=== PATIENT | male | born 1970 | race Caucasian/White ===

== ENCOUNTER 2016-11-12 11:19 | Inpatient (IN) | payer MEDICAID, OTHER ==
[~2016-11-12] VITALS: Ht 188 cm; Wt 90.1 kg
[~2016-11-12 11:19] MED LIST: AMPH20CA5 PO; KLO5T PO; LAMO200T PO; LAMO25TA2 PO; LURA20TA PO
[2016-11-12 11:22] VITALS: PULSE 82; RESP 14; O2SAT 98
--- NOTE | 2016-11-12 12:20 | ED.REPORT ---
HPI-Psychiatric Illness Date of Service November 12, 2016 ED Provider: Harrison Ortiz DO The patient is a 45 year old male with history of bipolar disorder, borderline personality disorder, PTSD, OCD, and ADHD, who presents to the emergency department with his requesting psychiatric hospital admission. The patient states he has been feeling suicidal over the last 9 years. About 1 year ago he started to feel homicidal. He states, "Right now I am between hurting myself and hurting everyone else. I want to be someone that makes such a big stink that they have to change the medical laws in the state. I have borderline personality disorder and I can go into a gun shop and buy an assault viviana. I have a plan that I can go and shoot a bunch of people on the [place] so my and family can go and kira the state." Yesterday the patient overdosed on medication. He admits to taking about 28 Klonopin and 6 Xanax last night, and this morning he took 5 more Klonopin. He is normally compliant with his medications. He has no physical complaints at this time. Nursing Notes Stated Complaint: MENTAL HEALTH Chief Complaint: Psychiatric Complaint Nursing Notes Reviewed: Yes Allergies: Coded Allergies: Sulfa (Sulfonamide Antibiotics) (Verified Adverse Reaction, Severe, Rash, 11/12/16) happened when pt was a child Scheduled Clonazepam (Clonazepam) 0.5 Mg Tab 1 MG PO DAILY 1mg in the am 0.5mg noon (prn) 0.5mg night (prn) Dextroamphetamine/Amphetamine ER (Adderall XR) 20 Mg Cap.er.24h 40 MG PO DAILY Lamotrigine (Lamictal) 200 Mg Tablet 400 MG PO DAILY Lamotrigine (Lamictal) 25 Mg Tablet 50 MG PO DAILY Miscellaneous Medications Lurasidone (Latuda) 20 Mg Tablet 20 MG PO General Time Seen by MD: 12:13 Chief Complaint Homicidal ideation, Suicidal ideation Hx Obtained From: Patient, Spouse Arrived By: Walk-in Onset Occurred: More than a week ago... Symptom Duration: Since onset Progression Since Onset: Constant, Gradually worsening Severity: Current: No pain currently Severity: Maximum: No pain Recent Healthcare: No recent hospitalization, Recent doctor visit Similar Sx Previous: Yes Risk-Psychiatric Illness Suicide Risk Stratification Suicide Risk Factors - Adult: No: Alcohol use, Substance abuse RF Statements: Risk factors reviewed Past Medical History Past Medical History Kidney stones Borderline personality disorder Bipolar PTSD OCD ADHD Past Surgical History Urinary stent placement Family History Noncontributory Smoking History Never Smoker Social History Alcohol Use: Denies alcohol use Drug Use: THC Other Social History: Good social support, , Local resident Ambulatory Status Independent Review of Systems Psychiatric: Reports: Change mental status, Homicidal ideation, Suicidal ideation, Unable to control self Complete sys rev & neg: except as marked. Physical Exam Initial Vital Signs Vital Signs (First) Date Time Temp Pulse Resp B/P Pulse Ox O2 Delivery O2 Flow Rate FiO2 11/12/16 11:22 36.0 82 14 98 Initial VS: Reviewed Head / Eyes: Atraumatic, Normocephalic, PERRL ENT: Mucous membranes moist, Conjunctiva normal, No scleral icterus Neck: Supple, Non-tender, Full range of motion Respiratory: Breath sounds normal, Clear to auscultation, No respiratory distress Cardiovascular: Regular rate & rhythm, Heart sounds normal, Intact distal pulses Abdomen / GI: Soft, Non-tender, No guarding, No rebound, No distention Extremities: Vascular intact, Neuro intact, No swelling, No tenderness Skin: Warm, Dry, No cyanosis General/Constitutional: Awake Neurologic: Oriented X3, Speech NL Abnormal Mood/Affect: Positive: Flat affect Abnormal Thinking / Perception: Positive: Homicidal, with plan (to murder people with an assault viviana), Suicidal, with plan Interpretation & Diagnostics Interpretation & Diagnostics: Breathalyzer: 0 Urine drug screen: positive for marijuana and benzodiazepines Lab Results Interpretation Result Diagram: 11/12/16 1231 11/12/16 1231 Test 11/12/16 12:31 11/12/16 14:30 White Blood Count 10.1th/mm3 (3.8-10.1) Red Blood Count 5.88mil/mm3 (4.40-5.80) Hemoglobin 17.0g/dL (13.8-17.2) Hematocrit 50.1% (41.0-50.0) Mean Corpuscular Volume 85.2fL (81-100) Mean Corpuscular Hemoglobin 28.9pg (27.0-35.0) Mean Corpuscular Hemoglobin Concent 33.9% (32.0-37.0) Red Cell Distribution Width 13.6% (12.3-15.4) Platelet Count 292bil/L (150-400) Neutrophils (%) (Auto) 58.5% (40-74) Lymphocytes (%) (Auto) 30.1% (14-46) Monocytes (%) (Auto) 9.7% (4-12) Eosinophils (%) (Auto) 1.2% (0-5) Basophils (%) (Auto) 0.3% (0-3) Sodium Level 140mEq/L (134-144) Potassium Level 4.3mEq/L (3.5-5.2) Chloride Level 103mEq/L (97-108) Carbon Dioxide Level 23mmol/L (18-29) Blood Urea Nitrogen 13mg/dL (6-24) Creatinine 1.02mg/dL (0.76-1.27) Estimat Glomerular Filtration Rate 84mL/min (>59) Glucose Level 85mg/dL (60-99) Calcium Level 10.0mg/dL (8.5-10.1) Total Bilirubin 0.4mg/dL (0.0-1.2) Aspartate Amino Transf (AST/SGOT) 38U/L (0-50) Alanine Aminotransferase (ALT/SGPT) 58U/L (0-44) Alkaline Phosphatase 77U/L (25-150) Total Protein 7.8g/dL (6.4-8.4) Albumin 4.4g/dL (3.4-5.0) Thyroid Stimulating Hormone (TSH) 4.030uIU/mL (0.450-4.500) Hold Ramirez Top Tube Received (Received) Salicylates Level < 3.0ug/mL (30-250) Acetaminophen Level < 15.0ug/mL Rx (10-25) Hold Urine Received (Received) Re-Eval/Medical Decision Med Decision/Clinical Course medically clear Source of Hx: Old records, Family Re-Evaluation/Progress : Time of Eval: 12:36 Re-Evaluation/Progress Note: The patient mentioned to the nurse after we left that room that he brought a razor blade with him to slit his wrists if we tried to send him home. Consultation #1: Consulted With: best worker Call Returned at: 13:15 Note: Will work on getting the patient a psychiatric bed. Consultation #2: Consulted With: best worker Call Returned at: 15:14 Note: The patient has been accepted in the care center. Counseled Regarding: Diagnosis, Lab results, Need for admission Discharge & Departure Impression: Primary Impression: Homicidal ideations Additional Impression: Suicidal ideations )( Condition at Discharge: Clear for psych facility Disposition: ADMITTED TO HOSPITAL Discharge Condition All VS Reviewed: Yes Condition: Stable Referrals: Avelino Bryan MD (PCP) [place] Attestation Portions of this note were transcribed by Jerica Son. I, Dr. Ortiz personally performed the history, physical exam and medical decision-making; I reviewed and confirmed the accuracy of the information in the transcribed note. Signed by: Amilcar Tay, 11/12/2016 at 1700. copies to: Avelino Bryan MD, Timothy S DO November 12, 2016 12:20 Jerica Son November 12, 2016 12:28
[2016-11-12 12:46] LABS: BASOPHILS % (AUTO) 0.3 % (0-3); EOSINOPHILS % (AUTO) 1.2 % (0-5); MONOCYTES % (AUTO) 9.7 % (4-12); Mean Corpuscular Hemoglobin 28.9 pg (27.0-35.0); Mean Corpuscular Volume 85.2 fL (81-100); NEUTROPHILS % (AUTO) 58.5 % (40-74); Platelet Count 292 bil/L (150-400)
--- NOTE | 2016-11-12 17:45 | NUR ---
Nurses Admission Note 45 year old voluntary male admitted after allegedly taking 28 1mg Klonopin yesterday and 8 Xanax 0.5mg today in a suicide attempt. Patient was brought to the ER by his for help. Patient c/o auditory hallucinations with a thoughts of buying an assault rifle and planning to shoot people to make a point about mental health patients. Patient reported he has not been medication compliant for greater than 3 months with many prescribed medications except for Klonopin and Adderall. Patient denied feelings of self harm and contracted for his safety as well as others. Patient reported having no anxiety,depression at this time. He reported sleeping but 2-3 hours a night which he stated was normal for him. He admitted to preferring to "having a bad day to feeling good" because it they never last and he becomes angry."Someone pisses me off." Patient presented cooperative,alert and oriented X 3.Will maintain q 15min. checks for safety and support,encourage improved insight and coping skills.
[2016-11-12] MEDS ORDERED: LITH300T2 PO (19:33)
[2016-11-12] MEDS ORDERED: AMPH30CA5 PO (19:36)
[2016-11-12] MEDS ORDERED: PRAZ1CAP PO (19:42)
[2016-11-12] MEDS ORDERED: PRAZ2CAP2 PO (19:43)
[2016-11-12] MEDS ORDERED: PRESTIG (19:49)
[2016-11-12] MEDS ORDERED: OLANZapine Zydis ODT 5 mg Tablet PO PRN (22:10)
[2016-11-12] MEDS ORDERED: Benzocaine-Menthol Lozenge 2/Pkg PO PRN (22:10)
[2016-11-12] MEDS ORDERED: Alum-Mag Hydrox-Simeth 30 mL Suspension PO PRN (22:10)
[2016-11-12] MEDS ORDERED: Magnesium Hydroxide 10 mL Oral Concentration PO PRN (22:10)
[2016-11-13 08:32] VITALS: BP 101/71; PULSE 83; RESP 13
[2016-11-13] MEDS ORDERED: Venlafaxine XR 37.5 mg ER24 Capsule PO ONE (17:20)
--- NOTE | 2016-11-13 18:25 | NUR ---
Nursing Dayshift: S: "What I really need is Adderall. But Latonia is a good friend to me." O: Patient's statement during med pass with Klonopin this AM. Notably anxious with both legs fidgeting. Not much effectiveness noted. Received a one time dose of Klonopin this afternoon with patient stating "it'll help me much." Noted calmer by latter afternoon. Family visiting at present and assisting patient with a puzzle. Good appetite at meals. Social with peers. Appropriate with interactions. A: Blunted affect. P: CPOC. Monitor mood and behavior.
--- NOTE | 2016-11-13 18:54 | NUR ---
Observations [id number] Pt very social and friendly with peers and staff. Pt spent the majority of the morning in the dining area, socializing with other patients. Pt very talkative and jokes frequently. Pt was listening to music in the morning and began crying by the TV, stated "I don't want to hear voices- I just want to be normal." Pt took a shower to calm down. He participated in group and was active on the unit, visited with and a friend in the evening and has been working on a puzzle. Pt ate 100% of meals, and was observed every 15 minutes of shift as directed.
--- NOTE | 2016-11-13 20:00 | NUR ---
inspection manager/Counselor: S: "I don't want to be a zombie so I don't want to take a lot of meds." O: Patient slept 6.5 hours last night per staff. Patient denies S/I. He reports H/I but says the person is in another state and he has "no way of hurting the person." He denies auditory and visual hallucinations. However, patient feels that he can control other people's thoughts. Depression is 3/10 and anxiety is 6/10. When asked his mood, patient stated, "Anxious." A: Patient is cooperative, disheveled, distactible, tangential, tearful at times, limited insight, limited judgment. P: Follow care plan, coordinate with out-patient providers. Addendum: 11/13/16 at 2003 by MARKY DUMONT [facility] [place] Patient attended and participated in the afternoon group.
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
--- NOTE | 2016-11-14 05:20 | NUR ---
nursing, nights, 11-7 s/o- has appeared to sleep after 2345. up at 0515 and is socializing in the dinning room. assessed q 15 minutes. a- no apparent distress. p- monitor behavior/emotional state, quality, times and amount of sleep, use and effect of medication. mame
[2016-11-14] MEDS: Venlafaxine XR 75 mg ER24 Capsule PO SCH (07:41)
[2016-11-14 09:10] VITALS: BP 111/87; PULSE 62; RESP 11
[2016-11-14 15:18] VITALS: BP 122/81; PULSE 87; RESP 16
--- NOTE | 2016-11-14 16:26 | PCM.PNPSY ---
Subjective Date of Service Nov 14, 2016 Subjective The patient reports that he is feeling playful this morning and upbeat. He reports a history of chronic suicidality spending approximately 10% of his day, but denies any thoughts of acting upon it. He reported having a good dream last night of his Lorraine with them was saddened when he saw that she was knocked actually there. The patient denied any side effects to medications he denied any homicidal threats or negative impulsivity. The patient was agreeable to increasing amantadine to twice a day as he was feeling somewhat restless in the morning. The patient reports that he spent $500 on an entrance fee for a [employer] tournament which is on Thursday and anticipates being discharged prior to then if possible. Sleep: 5.5 hours Appetite: Good eating everything Suicidal and homicidal ideation: Denies active, reports chronic occupying "10% of my time and Auditory hallucinations: "Tolerable today and " Visual hallucinations: Denies Other Psychotic Symptoms: Any Anxiety: "Just about wanting to know what today is going to bring." Excited anxiety 01/22. Depression: 0/10 Current Medications Current Medications Amantadine HCl 100 mg BID PO Last administered on 11/14/16 14:15; Admin Dose 100 MG; Start 11/14/16 at 12:50 Amantadine HCl 100 mg HS PO Last administered on 11/13/16 21:00; Admin Dose 100 MG; Start 11/13/16 at 21:00; Stop 11/14/16 at 12:51; Status DC Clonazepam 0.5 mg Q4H PRN PO Last administered on 11/14/16 13:07; Admin Dose 0.5 MG; Start 11/12/16 at 22:10 Clonazepam 1 mg 08,1430 PO Last administered on 11/14/16 14:03; Admin Dose 1 MG ; Start 11/14/16 at 08:00 Clonazepam 1 mg BID PO Last administered on 11/13/16 08:01; Admin Dose 1 MG; Start 11/12/16 at 22:10; Stop 11/13/16 at 16:38; Status DC Clonazepam 1 mg ONCE ONCE PO Last administered on 11/13/16 16:56; Admin Dose 1 MG; Start 11/13/16 at 16:35; Stop 11/13/16 at 16:41; Status DC Trazodone HCl 25 mg HS PRN PO Last administered on 11/13/16 22:22; Admin Dose 25 MG; Start 11/13/16 at 18:30 Trazodone HCl START WITH 1 TAB, MAY REPEAT... HS PRN PO Last administered on 22:33; Admin Dose 50 MG; Start 11/12/16 at 22:10; Stop 11/13/16 at 16:38 ; Status DC Venlafaxine HCl 37.5 mg ONCE ONCE PO Last administered on 11/13/16 18:27; Admin Dose 37.5 MG; Start 11/13/16 at 17:20; Stop 11/13/16 at 17:34; Status DC Venlafaxine HCl 75 mg DAILYWM PO Last administered on 11/14/16 07:41; Admin Dose 75 MG; Start 11/14/16 at 08:00 Mental Status Exam Appearance: Unkept Attitude: Pleasant, Cooperative Behavior: No unusual behavior Affect: Well Modulated/Appropriate, Restricted Mood: Anxious Thought Process/Associations: Logical/Sequential, Goal Directed Speech Production: Normal Speech Rate: Normal Speech Articulation: Normal Danger to Self/Suicidal Ideati: Passive (chronic as above) Danger to Others: None Hallucinations: Auditory (Denies), Visual (Denies) Consciousness: Alert Orientation: Person, Place, Date, Situation Memory: Grossly Intact Estimate Intellectual Function: Average Attention/Concentration & Cogn: Grossly Intact Insight: Limited Judgement: Limited Result Diagram: 11/12/16 1231 11/12/16 1231 Mental Health Plan The patient is a 45-year-old male with a history of mood disorder and borderline personality disorder and posttraumatic stress disorder who presents several days after a reported overdose of benzodiazepines due to suicidal and homicidal ideation. The patient's homicidal ideation apparently has resolved as has his suicidal ideation, but he continues to struggle with impulsivity. The patient also has a significant history of closed head injury. The patient appears to be experiencing negative side effects of high-dose Adderall with psychomotor agitation, hallucinations and irritability. The patient notes that since being off this medication, he has noted a decrease in all the above. Given his impulsivity and distractibility and history of closed head injury, the patient would likely respond to amantadine as this has been demonstrated to be effective in this situation. The patient would also likely benefit from an antidepressant given his history of posttraumatic stress disorder and ongoing depression. The patient was agreeable to starting Effexor and should this prove ineffective, would return to Pristiq. The patient appears to be tolerating current medications without significant side effects. He is aware that it will take some time to stabilize on his medications. He would like to remain on medications for several days in the hospital to ensure that he will not have any major side effects upon discharge. Merritt Merritt I 1. Mood disorder, not otherwise specified. 2. Posttraumatic stress disorder. 3. Attention deficit disorder by self-report Merritt II Borderline personality disorder. Merritt III1. 1. Status post clonazepam overdose 3 days ago. 2. Traumatic brain injury. 3. See past medical history. Merritt IV Moderate. Merritt V Global assessment of functioning 35 Medications Amantadine 100 mg twice daily Clonazepam 1 mg twice daily and 0.5 mg every 4 hours as needed for anxiety or agitation Venlafaxine XR 75 mg daily Trazodone 25 mg nightly when necessary insomnia Treatments 1. The patient is admitted to the inpatient unit and will be provided a safe and secure environment. 2. The patient is currently denying active suicidal ideation and is not in need of a one-to-one at this time. He is agreeable to notifying us should he have any acute suicidal or homicidal thoughts in the future. 3. The patient is encouraged to participate with group and milieu activities. 4. The patient will be seen by the treatment team on a daily basis to assess symptoms, side effects and response to treatment. 5. Continue venlafaxine XR 75 mg. 6. Increase amantadine to 100 mg twice daily. 7. Clonazepam will be continued at 1 mg twice daily and 0.5 mg every 4 hours as needed. 8. Trazodone 25 mg p.o. nightly p.r.n. insomnia. 9. Should the patient demonstrate impulsivity and attention difficulty, guanfacine may be beneficial in reducing symptoms. 10. As the patient has admitted that being in environments where he may be exposed to negative peers has been detrimental, a brief stay would be recommended and hopefully he can be discharged in 2-3 days. Ashvin Rao MD Nov 14, 2016 16:26
--- NOTE | 2016-11-14 16:37 | NUR ---
Nursing Dayshift: S: "The voices were telling me I'm no good, to hurt myself. I banged my head against the wall in my room." O: Patient noted to have a cut on his forehead measuring approximately 3 cm across. Scant bleeding. Cleansed and dressed with bacitracin and a band aid. Patient denied pain. Requested "can I have my Klonopin early?" PRN dose of 0.5 mg given at 1307. Patient received afternoon dose of 1 mg at regular time. Within the hour patient stated "I do feel a little better. The voices are gone and I don't feel like hurting myself." Eating well at meals. Social with female staff. Some sexual comments noted. A: Command AH. Anxious. Flirtacious. P: CPOC. Monitor mood and behavior.
--- NOTE | 2016-11-14 18:50 | NUR ---
[facility] Day Shift Pt maintained behavioral control throughout the shift, barring an incident in the early afternoon where pt banged his forehead against his bedroom wall (see RN note). Pt spends most of the shift interacting with peers/reading/listening to music in the dining room or resting in his room. Pt is mostly pleasant and appropriate with staff and peers when active on the unit, but is occasionally verbally inappropriate (pt makes sexually inappropriate comments). Pt attended all meals and ate approx 100% of all meals.
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
--- NOTE | 2016-11-15 05:29 | NUR ---
Nursing Noc Zero behavioral problems this shift. Pt noted to be smiling and joking watching TV and listening to music in DR prior to bed. Taking medications as prescribed. Appears slightly anxious or hypomanic in large groups in dinning room. Pt able to get addequate sleep with getting up once this shift for 30 minutes. Continuing to monitor mood behavior and emotional state, RIZWAN
[2016-11-15] MEDS: Venlafaxine XR 75 mg ER24 Capsule PO SCH (08:33)
--- NOTE | 2016-11-15 11:55 | PROG NOTE ---
[address] [address] PROGRESS NOTE PATIENT: JHONY GROSS : 1970 MR#: [id number] ADMIT: 11/12/2016 JOB ID: [id number] DATE: 11/15/2016 CHIEF COMPLAINT: "I was hearing the voice of my father, grandfather, and my principal yesterday." HISTORY OF PRESENT ILLNESS: As stated above, the patient did identify that he was quite distressed yesterday and this morning and evidently was involved head banging with open laceration noted to his forehead. The patient identified that he was struggling with significant intrusive thoughts and auditory voices of derogatory in nature. He indicated that they were telling him very bad things, and he preferred not to speak about it. The patient reportedly has had some inappropriate behaviors on the unit, making inappropriate sexually suggestive comments per staff report, within the past 24 hours. The patient reports that he has requested additional doses of Klonopin but is aware that this is a restricted medication. He indicated that there was some discussion of possible plan of discharge tomorrow, but he indicates that he would like to continue his hospitalization at this time until next Thursday but gave no specific reasoning. There is some question of the patients intent and need for hospitalization nonetheless He reports that he has not had any significant homicidal ideation but has had some significant suicidal thoughts and indicated that if there was anybody going to do it, he would actually do it with them. He gave the rationale that he has told other females on the unit that if they were feeling suicidal to give him a call and he would be able to be there with them when they did it. . He reference that he is afraid to find out what is on the other side if he were alone and would prefer to have others there if he were to complete suicide. OBJECTIVE: On mental status exam, he was bright, cooperative, interactive. He does have an open laceration wound to his forehead. No signs of infection. His speech was of normal tone, frequency, and volume. His mood was neutral with anxious features. His affect was congruent. His thought process shows no evidence of random flight of ideas, loose or disconnected thinking. His thought content: He did identify some fleeting thoughts of suicide. No active hallucinations but evidence of flashbacks. His thought content: He was alert, oriented to person, place, time, situation. His attention and concentration are fleeting. His memory is intact in the short term, care home, recent. Insight and judgment are poor. PHYSICAL EXAM: Vital signs are current. Temperature is unlisted, pulse 67, respirations 16, BP 122/81. MEDICATION REVIEW: Includes: 1. Symmetrel 100 mg b.i.d. 2. Klonopin 1 mg b.i.d. 3. Effexor 75 mg q.a.m. 4. Trazodone 25 mg p.r.n. at h.s. 5. Klonopin 0.5 mg q.4 h. p.r.n. ASSESSMENT: AXIS I: 1. Major depressive disorder, recurrent type, nonpsychotic. 2. Posttraumatic stress disorder, chronic. 3. Attention deficit hyperactivity disorder by self report. 4. Malingering AXIS II: Borderline personality disorder. AXIS III: 1. Status post Klonopin overdose. 2. Traumatic brain injury. AXIS IV: Moderate AXIS V: Global Assessment of Functioning of current 35. PLAN: 1. Recommendations for continuation of Effexor 75 mg q.a.m. with possible titration to follow. 2. Continuation of trazodone 25 mg at h.s. p.r.n. 3. Continuation of Klonopin 1 mg b.i.d. and additional p.r.n. every 4 hours. 4. Consideration of usage of Vistaril for added anxiety benefit with discussion of potential of utilization of prazocin tomorrow if the patient is open to such. [facility]
--- NOTE | 2016-11-15 13:01 | NUR ---
NURSING DAYS 7-7 S-Patient states "I hear voices in my head and if I don't get my Clonapam right away then I hit my head on things". Patient states "I was just visiting with her when she took her shirt off" O- Patient has 1in laceration on forehead, small smear of blood noted on bathroom wall where patient stated he hit his head. Patient later observed visiting outside of another patient room #220. A-Patient informed that he can only visit with Patient in room #220 or any other patients when he is in dinning room or supervised group activities. Patient told to inform staff when /if internal voices heard and staff will provide PRN medications. P-Keep patient safe, monitor any inappropriate interactions with fellow patients and establish firm binderies. Patient informed that if boundaries violated or harm done to self or others he will face seclusion
--- NOTE | 2016-11-15 17:00 | PCM.DIMED ---
Discharge Instructions Date of Service Nov 15, 2016 Dates of Hospitalization November 12, 2016 at 17:32 Discharge Diagnosis Discharge Diagnosis Major Depression Recurrent nonpsychotic Anxiety DO NOS R/O Malingering Diet Discharge Diet: No restrictions Activity Discharge Activity: No restrictions Jorge Alberto Sales DO Nov 15, 2016 17:00
[2016-11-15] MEDS ORDERED: KLO5T PO (17:02)
[2016-11-15] MEDS ORDERED: AMN100C PO ×2 (17:02→17:14)
[2016-11-15] MEDS ORDERED: TRAZ-115 PO (17:02)
[2016-11-15] MEDS ORDERED: VENL75CA PO (17:02)
[2016-11-15] MEDS ORDERED: KLO1T PO (17:14)
--- NOTE | 2016-11-15 18:13 | NUR ---
NURS Discharge Note Patient cooperative with discharge process. Acknowledges understanding of d/c instructions and has a copy with them upon leaving unit [id number]. Belongings accounted for and with patient. Prescriptions faxed to patients home pharmacy. Patient denies harmful thoughts and hallucinations at this time. Encouraged pt to complete goals and seek out staff for assistance if needed
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
== END 2016-11-15 18:15 | disposition home or self-care (01) | DRG 885 ==
LOC: SED 11:19 → MHC 17:32
PROVIDERS: ADMIT Psychiatry & Neurology Psychiatry; ATTEND Psychiatry & Neurology Psychiatry
DX: F33.2 Major depressive disorder, recurrent severe without psychotic features (principal); R45.850 Homicidal ideations; R45.851 Suicidal ideations; F43.12 Post-traumatic stress disorder, chronic; Z87.820 Personal history of traumatic brain injury; Z76.5 Malingerer [conscious simulation]; F60.3 Borderline personality disorder; F60.2 Antisocial personality disorder